=== PATIENT | male | born 1960 | race Two or more races ===

== ENCOUNTER 2020-07-09 12:57 | Inpatient (IN) | payer BC ==
[~2020-07-09] VITALS: Ht 193 cm; Wt 139.9 kg
[~2020-07-09 12:57] MED LIST: CARI250T; FLUT0.0531; HYDR7.5T; METF-371; MONT4CHW9
[2020-07-09] MEDS ORDERED: SODIUM CHLORIDE 0.9% 1,000 ML IV ONE ×2 (13:30)
[2020-07-09] MEDS ORDERED: NITROGLYCERIN 0.4 MG SL TAB SL PRN (13:30)
[2020-07-09] MEDS ORDERED: ACETAMINOPHEN 500 MG TAB PO PRN (13:30)
[2020-07-09] MEDS ORDERED: MORPHINE SULF INJ 2 MG/ML SYRINGE 1ML IV PRN (13:30)
[2020-07-09] MEDS ORDERED: ONDANSETRON HCL 4 MG/2 ML VIAL IV ONE (13:30)
[2020-07-09] MEDS ORDERED: SODIUM CHLORIDE 0.9% 2,000 ML IV SCH (13:30)
[2020-07-09] MEDS ORDERED: KETOROLAC TROMETH 30 MG/ML 1ML VIAL IV PRN ×2 (13:30→14:30)
[2020-07-09] MEDS ORDERED: PIPERACILLIN-TAZOB 3.375GM 100 ML IV ONE (13:30)
[2020-07-09] MEDS ORDERED: CLINDAMYCIN 900MG IV 50 ML IV ONE (13:30)
[2020-07-09] MEDS ORDERED: MORPHINE SULFATE 4 MG/ML SYR/VIAL IV ONE (13:30)
[2020-07-09 13:35] LABS: Basophils # (auto) 0 10 ^3/uL (0-0.2); Basophils % (auto) 0.1 % (0.0-2.0); Eosinophils # (auto) 0 10 ^3/uL (0-0.8); Eosinophils % (auto) 0.1 % (0.0-7.0); Hematocrit 40.2 % (41.0-53.0); Hemoglobin 13.6 g/dL (13.5-17.5); Lymphocytes # (auto) 0.1 10 ^3/uL (0.4-5.4); Lymphocytes % (auto) 0.9 % (10.0-50.0); Mean Corpuscular Hemoglobin 27.2 pg (28.0-32.0); Mean Corpuscular Hgb Conc. 33.9 g/dL (32.0-36.0); Mean Corpuscular Volume 80.2 fL (80.0-100.0); Monocytes # (auto) 0.1 10 ^3/uL (0-1.3); Monocytes % (auto) 1.9 % (0.0-12.0); Neutrophils # (auto) 5.7 10 ^3/uL (1.6-8.6); Nucleated Red Blood Cells % 0.2 %; Platelet Count (auto) 156 10^3/uL (140-450); Red Blood Cells 5.01 10^6/uL (4.5-5.90); Red Cell Distribution Width 15.2 % (11.8-14.3); White Blood Cell 5.9 10^3/uL (4.4-10.8)
[2020-07-09 13:47] LABS: Albumin 3.6 g/dL (3.4-5.0); Anion Gap 7 (5-15); Blood Urea Nitrogen 14 mg/dL (7-18); Calcium 8.5 mg/dL (8.5-10.1); Carbon Dioxide 25 mmol/L (21-32); Chloride 104 mmol/L (98-107); Glucose 271 mg/dL (74-106); Potassium 3.9 mmol/L (3.5-5.1); Sodium 136 mmol/L (136-145)
[2020-07-09 13:51] LABS: Lactic Acid w/Reflex 2.1 mmol/L (0.4-2.0)
[2020-07-09 13:52] LABS: Alanine Aminotransferase 69 U/L (16-61); Alkaline Phosphatase 86 U/L (45-117); Aspartate Aminotransferase 89 U/L (15-37); BUN/Creatinine Ratio 10.1; Bilirubin, Total 1.5 mg/dL (0.2-1.0); GFR African American 68 mL/min; GFR Non-African American 56 mL/min; Total Protein 7.2 g/dL (6.4-8.2)
[2020-07-09 13:56] LABS: INR 1.02 (0.9-1.15); Partial Thromboplastin Time 28.1 sec (23.0-31.2)
[2020-07-09] MEDS ORDERED: DEXTROSE (50%) 50ML SYRG IV ONE (14:00)
[2020-07-09] MEDS ORDERED: DEXTROSE (50%) 50ML SYRG IV PRN (15:00)
[2020-07-09 16:00] VITALS: BP 175/75
--- NOTE | 2020-07-09 16:50 | NUR ---
Patient transferred from ER Assumed care of patient, awake and alert. A/O X 4. No S/S of distress/SOB or pain. Patient is shivering and states he is cold. Vitals temp 98.6, BP 175/75, HR 111, RR 20, O2 95%. Right scrotal ulcer noted. Red with no drainage. ABD applied. Pictures taken. Wound nurse at bedside. Instructed on POC and to call for assist PRN. Patient verbalized understanding. Will continue to monitor for changes Q1hr and PRN.
[2020-07-09 17:00] VITALS: BP 152/84
[2020-07-09] MEDS: ACCU-CHEK COMFORT CURVE STRIP VI SCH ×2 (17:00→21:43)
--- NOTE | 2020-07-09 17:00 | NUR ---
WOUND CARE NOTE: IN TO SEE PATIENT AT THIS TIME PER WOUND CARE CONSULT REQUEST. PATIENT WAS NOTED UPON PRESENTATION TO THE ER TO HAVE A WOUND TO RIGHT SCROTUM. WOUND CONSULT ORDERED AT THAT TIME. PATIENT ADMITTED TO COUNT INCLUDES THE [facility] WITH FEVER, CHILLS. WOUND PHOTO TAKEN AT THIS TIME FOR REFERENCE. WOUND CULTURE WAS CAPTURED, SENT TO LAB FOR PROCESSING, WHILE PATIENT STILL IN ER. PATIENT IS NOTED TO HAVE A HARD INDURATED RIGHT SCROTUM, WITH 1 X 1 CM OPEN WOUND NOTED. WOUND IS VERY TENDER TO THE TOUCH, SCANT PURULENT DRAINAGE NOTED. CLEANSED WITH WOUND CLEANSER, PATTED DRY WITH STERILE GAUZE. APPLIED ABD PAD, SECURING WITH PATIENT'S UNDERWEAR. RECOMMEND: DAILY/PRN DRESSING CHANGE WITH ABD PAD, UROLOGIST CONSULT FOR POSSIBLE SURGICAL INTERVENTION, SKIN/WOUND CARE PLAN. WOUND CARE TEAM WILL CONTINUE TO MONITOR. Addendum: 07/09/20 at 1839 by Sole Sarah RN Amended: Links added.
[2020-07-09] MEDS ORDERED: IOHEXOL 300 MG/ML 100ML BOTTLE IJ ONE (17:06)
[2020-07-09] MEDS ORDERED: HYDR-531 PO (17:18)
[2020-07-09] MEDS ORDERED: PANT40T PO (17:18)
[2020-07-09] MEDS ORDERED: ERGO1CAP12 PO (17:18)
[2020-07-09] MEDS ORDERED: SITA100T7 PO (17:18)
[2020-07-09] MEDS ORDERED: VALS1TAB58 PO (17:19)
[2020-07-09] MEDS: INSULIN LANTUS (GLARGINE) 1 /0.01ml (100units/ml) SC SCH (18:00)
--- NOTE | 2020-07-09 18:29 | NUR ---
Medication withheld Regular insulin withheld due to the close administration of Lantus. BS 243. Lantus given. score caller hospitalist notified.
--- NOTE | 2020-07-09 19:25 | NUR ---
Opening Shift Note Assumed care of patient. Patient is awake, alert, and oriented x 4. No S/S of respiratory distress. Respirations are regular and non-labored. Pt reports pain 8/10 at this time and will be medicated per dr's order. Bed in lowest locked position, side rails up x 2, and call light is within reach. Instructed on POC and to call for assistance as needed. Will continue to monitor for changes Q1hr and PRN.
[2020-07-09 20:00] VITALS: BP 111/68
[2020-07-09] MEDS: HYDROmorphone HCL 2 MG/ML VL IV PRN (20:11)
[2020-07-09 21:17] LABS: Urine Bacteria NONE SEEN /hpf (None Seen); Urine Blood Negative /uL (Negative); Urine WBC <1 /hpf (0 - 3)
[2020-07-09 21:32] LABS: Urine Specific Gravity > 1.050 (1.001-1.035)
--- NOTE | 2020-07-09 21:40 | NUR ---
's call Dr. Sahu called to get updates on patient's current condition. Updates were given. New order's were received, verified, read back, and will be implemented. Will continue pt's care. Addendum: 07/10/20 at 0317 by JAKE LECHUGA RN RN Per 's order rate of NaCl 0.9% should be decreased from 125 ml/h to 80 ml/h.
[2020-07-09] MEDS: PIPERACILLIN-TAZO 4.5GM 100 ML IV SCH (21:44)
[2020-07-09] MEDS: InsuLIN REG 1unit/0.01ml Soln (100units/ml) SC SCH (21:46)
[2020-07-09 22:00] VITALS: BP 111/68
[2020-07-09] MEDS ORDERED: LINEZOLID 600MG/300ML 300 ML IV SCH (22:00)
[2020-07-10 05:00] VITALS: BP 121/73
[2020-07-10] MEDS ORDERED: SOD CHL 0.45% 1,000 ML IV SCH (05:30)
[2020-07-10 05:37] LABS: Hemoglobin 12.4 g/dL (13.5-17.5); Platelet Count (auto) 132 10^3/uL (140-450)
[2020-07-10 05:42] LABS: Hematocrit 36.3 % (41.0-53.0); Mean Corpuscular Hemoglobin 27.4 pg (28.0-32.0); Mean Corpuscular Hgb Conc. 34.1 g/dL (32.0-36.0); Mean Corpuscular Volume 80.3 fL (80.0-100.0); Red Blood Cells 4.52 10^6/uL (4.5-5.90); Red Cell Distribution Width 15.2 % (11.8-14.3)
[2020-07-10 05:53] LABS: Albumin 2.6 g/dL (3.4-5.0); Calcium 8.1 mg/dL (8.5-10.1); Potassium 3.8 mmol/L (3.5-5.1)
[2020-07-10 05:58] LABS: BUN/Creatinine Ratio 15.3; Bilirubin, Total 3.2 mg/dL (0.2-1.0); Total Protein 5.6 g/dL (6.4-8.2)
[2020-07-10 06:03] LABS: White Blood Cell 1.8 10^3/uL (4.4-10.8)
[2020-07-10 06:05] LABS: Basophils % (manual) 0 (0.0-2.0); Blast Cells 0; Eosinophils % (manual) 0 (0-7); Promyelocytes % 0; Reactive Lymphocytes 0
--- NOTE | 2020-07-10 06:15 | NUR ---
Critical value. Pt's WBCs 1.8. Called Dr. Sahu regarding pt's current condition and lab value. received all info and placed orders. Will continue pt's care.
[2020-07-10] MEDS: PIPERACILLIN-TAZO 4.5GM 100 ML IV SCH ×4 (06:21→15:43)
[2020-07-10] MEDS ORDERED: FILGRASTIM(TBO) 480 MCG/0.8 ML SYRG SC ONE (06:30)
[2020-07-10] MEDS: HYDROmorphone HCL 2 MG/ML VL IV PRN ×2 (06:42→22:31)
[2020-07-10] MEDS ORDERED: D5W 5% IV ONE (06:45)
[2020-07-10] MEDS ORDERED: GENTAMICIN SULFATE IV ONE (06:45)
[2020-07-10] MEDS ORDERED: GENTAMICIN IV SCH ×2 (06:45→10:00)
[2020-07-10 06:53] LABS: Band Neutrophils % (manual) 11; Lymphocytes % (manual) 6 (10.0-50.0); Metamyelocytes % 1; Monocytes % (manual) 6 (0-12); Myelocytes % 1
[2020-07-10] MEDS: ACCU-CHEK COMFORT CURVE STRIP VI SCH ×4 (07:01→22:30)
[2020-07-10] MEDS: InsuLIN REG 1unit/0.01ml Soln (100units/ml) SC SCH ×2 (07:06→11:30)
[2020-07-10 08:00] VITALS: BP 121/67
--- NOTE | 2020-07-10 08:00 | NUR ---
Received pt resting in bed, call light within reach, pt denies any pain or discomfort at this time, pt has swelling and abscess on rt side of scrotal, ordered the arvind strap, will continue to monitor pt.
[2020-07-10] MEDS: SODIUM CHLORIDE 0.9% 1,000 ML IV SCH ×2 (08:54→17:03)
[2020-07-10 09:00] VITALS: BP 121/67
[2020-07-10] MEDS: FILGRASTIM(TBO) 480 MCG/0.8 ML SYRG SC SCH (10:00)
[2020-07-10] MEDS: INSULIN LANTUS (GLARGINE) 1 /0.01ml (100units/ml) SC SCH ×3 (10:25→17:11)
--- NOTE | 2020-07-10 11:50 | NUR ---
Dr. Sahu at bed side to see pt, doctor discussed plan of care with pt. Doctor assessed abscess.
[2020-07-10] MEDS: GENTAMICIN SULFATE IV SCH ×2 (12:26→23:09)
[2020-07-10] MEDS: D5W 5% IV SCH ×2 (12:26→23:09)
[2020-07-10] MEDS: INSULIN LISPRO (HUMAN) 100 UNITS/ML ML SC SCH ×3 (12:50→22:43)
[2020-07-10] MEDS: LINEZOLID 600MG/300ML 300 ML IV SCH (14:00)
[2020-07-10 17:00] VITALS: BP 120/79
--- NOTE | 2020-07-10 17:31 | NUR ---
Called and spoke to CHRISTINE Whipple/urology to clarify order for COVID test, doctor informed that the rapid rosenda test done and negative, as per doctor that is good enough and no need to do the inhouse covid test.
--- NOTE | 2020-07-10 19:28 | NUR ---
OPENING NOTE Assumed care of patient. Pt is awake, alert, and oriented X 4, resting in bed. No s/s of respiratory distress. Respirations are regular and non-labored. PT is on RA. traffic monitor specialist leads positioned correctly. Bed in lowest locked position, bed rails up X 2, call light is within reach. Instructed on POC and encouraged to call for assistance as needed. All questions and concerns addressed, patient verbalized understanding. Will continue to monitor Q1H and/or PRN.
[2020-07-10 20:00] VITALS: BP 121/71
[2020-07-10 21:00] VITALS: BP 121/71
--- NOTE | 2020-07-10 21:30 | NUR ---
Patient transferred to room 282. Patient instructed on neutropenic precautions. Will continue to monitor.
[2020-07-11] MEDS: PIPERACILLIN-TAZO 4.5GM 100 ML IV SCH ×4 (00:03→23:08)
[2020-07-11] MEDS: LINEZOLID 600MG/300ML 300 ML IV SCH ×2 (02:03→14:17)
[2020-07-11] MEDS: SODIUM CHLORIDE 0.9% 1,000 ML IV SCH ×2 (02:45→12:32)
[2020-07-11 05:00] VITALS: BP 132/85
--- NOTE | 2020-07-11 05:11 | NUR ---
Prep to OR CHG bath given to patient.
[2020-07-11 06:38] LABS: Basophils # (auto) 0 10 ^3/uL (0-0.2); Eosinophils # (auto) 0 10 ^3/uL (0-0.8); Mean Corpuscular Hgb Conc. 33.9 g/dL (32.0-36.0); Monocytes # (auto) 0.2 10 ^3/uL (0-1.3); Neutrophils # (auto) 3.5 10 ^3/uL (1.6-8.6); Neutrophils % (auto) 85.3 % (37.0-80.0); Red Cell Distribution Width 15.2 % (11.8-14.3); White Blood Cell 4.1 10^3/uL (4.4-10.8)
[2020-07-11 06:40] LABS: Basophils % (auto) 0.6 % (0.0-2.0); Eosinophils % (auto) 0.9 % (0.0-7.0); Hematocrit 35.6 % (41.0-53.0); Hemoglobin 12.1 g/dL (13.5-17.5); Lymphocytes # (auto) 0.4 10 ^3/uL (0.4-5.4); Lymphocytes % (auto) 8.6 % (10.0-50.0); Mean Corpuscular Hemoglobin 26.9 pg (28.0-32.0); Mean Corpuscular Volume 79.2 fL (80.0-100.0); Monocytes % (auto) 4.6 % (0.0-12.0); Nucleated Red Blood Cells % 0.1 %; Platelet Count (auto) 125 10^3/uL (140-450); Red Blood Cells 4.49 10^6/uL (4.5-5.90)
[2020-07-11] MEDS: ACCU-CHEK COMFORT CURVE STRIP VI SCH ×4 (06:50→21:08)
[2020-07-11] MEDS: INSULIN LISPRO (HUMAN) 100 UNITS/ML ML SC SCH ×4 (06:50→21:10)
[2020-07-11 06:52] LABS: Albumin 2.6 g/dL (3.4-5.0); Calcium 8.2 mg/dL (8.5-10.1); Potassium 3.5 mmol/L (3.5-5.1)
[2020-07-11] MEDS: HYDROmorphone HCL 2 MG/ML VL IV PRN ×2 (06:54→21:25)
[2020-07-11 06:55] LABS: Bilirubin, Total 1.7 mg/dL (0.2-1.0); Total Protein 5.9 g/dL (6.4-8.2)
[2020-07-11 08:00] VITALS: BP 123/85
[2020-07-11] MEDS: INSULIN LANTUS (GLARGINE) 1 /0.01ml (100units/ml) SC SCH ×2 (08:41→17:24)
[2020-07-11 09:00] VITALS: BP 138/78
--- NOTE | 2020-07-11 09:10 | NUR ---
OFF FLOOR Patient taken to Pre-op
[2020-07-11] MEDS ORDERED: SUCCINYLCHOLINE CHLORIDE 20 MG/ML 10ML VIAL IV ONE (09:27)
[2020-07-11] MEDS ORDERED: LIDOCAINE 1% (LOCAL ANESTH.) PF 5ml SDV ONE (09:27)
[2020-07-11] MEDS ORDERED: ceFAZolin 1GM/50ML 50 ML IV ONE (09:27)
[2020-07-11] MEDS ORDERED: LIDOCAINE 1% HCL (LOCAL ANESTH.) INJ 20ML MDV ONE (09:28)
[2020-07-11] MEDS ORDERED: LIDOCAINE W/ EPINEPHRINE 1% 20ML VIAL ONE (09:28)
[2020-07-11] MEDS ORDERED: MIDAZOLAM HCL 1MG/1ML-2 ML VIAL ONE (09:29)
[2020-07-11] MEDS ORDERED: ETOMIDATE (2MG/ML) 20ML VIAL IV ONE (09:32)
[2020-07-11] MEDS ORDERED: ROCURONIUM 10MG/ML 10ML VIAL IV ONE (09:32)
[2020-07-11] MEDS ORDERED: METOCLOPRAMIDE HCL 5MG/ml INJ 2ml VIAL ONE (09:38)
[2020-07-11] MEDS ORDERED: fentaNYL CITRATE 100 MCG/2 ML VL ONE (09:51)
--- NOTE | 2020-07-11 10:04 | NUR ---
Opening Shift Note Assumed care of patient, awake and alert. No S/S of distress/SOB or pain. Bed in lowest position side rails up x2 and call light within reach. Left hand 22 G IV patent, dry, and intact running NS at 100 ml/hr with no signs of redness or swelling. Instructed on POC and to call for assist PRN, will continue to monitor for changes Q1hr and PRN.
[2020-07-11] MEDS ORDERED: NALOXONE HCL 0.4 MG/ML VIAL IV PRN (10:30)
[2020-07-11] MEDS ORDERED: ONDANSETRON HCL 4 MG/2 ML VIAL IV PRN (10:30)
[2020-07-11] MEDS ORDERED: HYDROmorphone HCL 2 MG/ML VL IV PRN ×2 (10:30)
[2020-07-11] MEDS ORDERED: ACCU-CHEK COMFORT CURVE STRIP VI ONE (10:30)
--- NOTE | 2020-07-11 11:15 | NUR ---
PATIENT BACK FROM OR Received bedside report from OR nurse. Pt. is stable, A&Ox4, and showing no signs of distress. Pt. has hospital underwear with gauze pads and Sx site is clean and dry. Fall precautions in place; bed alarm on, bed in lowest position with side rails up x2 and call light within reach. Patient is on O2 via NC for comfort.
[2020-07-11] MEDS: FILGRASTIM(TBO) 480 MCG/0.8 ML SYRG SC SCH (11:25)
[2020-07-11] MEDS ORDERED: POTASSIUM CHL 20MEQ/100ML 100 ML IV PRN (12:15)
[2020-07-11] MEDS: KETOROLAC TROMETH 30 MG/ML 1ML VIAL IV PRN (12:38)
--- NOTE | 2020-07-11 12:55 | NUR ---
POST PROCEDURE VS T: 97.7 F HR: 90 RR: 24 on 4L O2 via NC O2: 96% BP: 131/83
[2020-07-11 12:59] VITALS: BP 131/83
[2020-07-11] MEDS ORDERED: POTASSIUM CHL 20MEQ/100ML 100 ML IV SCH (14:00)
[2020-07-11] MEDS: POTASSIUM CHL 20MEQ/100ML 100 ML IV SCH ×2 (14:44→20:03)
[2020-07-11 16:53] VITALS: BP 145/81
--- NOTE | 2020-07-11 19:35 | NUR ---
Opening Shift Note Assumed care of patient, awake and alert. Fall and safety precautions in place. No S/S of distress/SOB. Instructed on POC and to call for assist PRN, patient verbalized understanding and in agreement. Call light within reach and able to use. Will continue to monitor for changes Q1hr and PRN.
[2020-07-11 21:00] VITALS: BP 148/85
[2020-07-12] MEDS: SODIUM CHLORIDE 0.9% 1,000 ML IV SCH (00:29)
[2020-07-12] MEDS: LINEZOLID 600MG/300ML 300 ML IV SCH ×2 (01:15→13:17)
[2020-07-12 05:00] VITALS: BP 155/89
[2020-07-12] MEDS: KETOROLAC TROMETH 30 MG/ML 1ML VIAL IV PRN ×2 (05:11→21:06)
[2020-07-12] MEDS: ACCU-CHEK COMFORT CURVE STRIP VI SCH ×4 (06:02→21:01)
[2020-07-12] MEDS: INSULIN LISPRO (HUMAN) 100 UNITS/ML ML SC SCH ×4 (06:04→21:05)
[2020-07-12 08:00] VITALS: BP 123/85
[2020-07-12] MEDS: INSULIN LANTUS (GLARGINE) 1 /0.01ml (100units/ml) SC SCH ×2 (08:12→17:23)
[2020-07-12 08:13] LABS: Basophils # (auto) 0 10 ^3/uL (0-0.2); Basophils % (auto) 0.2 % (0.0-2.0); Eosinophils # (auto) 0.1 10 ^3/uL (0-0.8); Eosinophils % (auto) 1.3 % (0.0-7.0); Hematocrit 35.8 % (41.0-53.0); Hemoglobin 12.1 g/dL (13.5-17.5); Lymphocytes # (auto) 0.7 10 ^3/uL (0.4-5.4); Lymphocytes % (auto) 7.6 % (10.0-50.0); Mean Corpuscular Hemoglobin 26.6 pg (28.0-32.0); Mean Corpuscular Hgb Conc. 33.7 g/dL (32.0-36.0); Mean Corpuscular Volume 78.8 fL (80.0-100.0); Monocytes # (auto) 0.6 10 ^3/uL (0-1.3); Monocytes % (auto) 6.7 % (0.0-12.0); Neutrophils # (auto) 7.6 10 ^3/uL (1.6-8.6); Neutrophils % (auto) 84.2 % (37.0-80.0); Nucleated Red Blood Cells % 0.2 %; Platelet Count (auto) 143 10^3/uL (140-450); Red Blood Cells 4.54 10^6/uL (4.5-5.90); Red Cell Distribution Width 15.2 % (11.8-14.3)
--- NOTE | 2020-07-12 08:13 | NUR ---
Opening Shift Note Assumed care of patient, awake and alert. No S/S of distress/SOB or pain. Bed in lowest position side rails up x2 and call light within reach. Left hand 22 G IV running NS at 80 ml/hr patent, dry, intact with no redness or swelling. Instructed on POC and to call for assist PRN, will continue to monitor for changes Q1hr and PRN.
[2020-07-12] MEDS: PIPERACILLIN-TAZO 4.5GM 100 ML IV SCH ×3 (08:14→23:19)
[2020-07-12] MEDS ORDERED: FILGRASTIM(TBO) 480 MCG/0.8 ML SYRG SC SCH (08:15)
[2020-07-12 08:27] LABS: Albumin 2.8 g/dL (3.4-5.0); Calcium 8.6 mg/dL (8.5-10.1)
[2020-07-12 08:32] LABS: BUN/Creatinine Ratio 8.7; Bilirubin, Total 0.9 mg/dL (0.2-1.0); Total Protein 6.2 g/dL (6.4-8.2)
[2020-07-12 09:00] VITALS: BP 121/79
[2020-07-12] MEDS: HYDROmorphone HCL 2 MG/ML VL IV PRN ×2 (10:25→16:50)
--- NOTE | 2020-07-12 11:25 | NUR ---
Dr. Sahu at bed side to see pt, doctor discussed the plan of care with pt. doctor informed of pharmacy requesting clarification order regarding Mag dosages and or parameters.
[2020-07-12] MEDS ORDERED: VALSARTAN 80 MG TAB PO ONE (11:45)
[2020-07-12] MEDS: SOD CHL 0.45% 1,000 ML IV SCH (13:17)
[2020-07-12 13:30] VITALS: BP 136/80
--- NOTE | 2020-07-12 15:20 | NUR ---
Faxed [phone] for wound care to [facility] [phone]
--- NOTE | 2020-07-12 16:15 | NUR ---
Spoke with Janelle BURGOS stated they are waiting for the insurance auth and will call me when it is approved.
[2020-07-12 16:30] VITALS: BP 132/79
--- NOTE | 2020-07-12 16:32 | NUR ---
Called [facility], [facility], [facility], [facility], [facility], [facility], none of these HH services, will accept the insurance.
--- NOTE | 2020-07-12 16:40 | NUR ---
Received a call from Janelle Reid for [facility] and stated they will not due to insurance.
--- NOTE | 2020-07-12 16:47 | NUR ---
Called [employer] the secondary insurance the that patient gave us and spoke with Sergey BURGOS and checked the policy but the patient has no home health
--- NOTE | 2020-07-12 19:45 | NUR ---
Opening Shift Note Assumed care of patient, AOx4. Fall and safety precautions in place. No S/S of distress/SOB. Instructed on POC and to call for assist PRN, patient verbalized understanding and in agreement. Call light within reach and able to use. Will continue to monitor for changes Q1hr and PRN.
[2020-07-12 21:50] VITALS: BP 136/76
--- NOTE | 2020-07-12 22:15 | NUR ---
IV removal IV DC'd to left hand due to infiltration with clean sterile technique, catheter fully intact. Pressure dressing applied to site. Patient given ice pack to reduce swelling. Patient tolerated well. Will continue to monitor.
--- NOTE | 2020-07-12 22:30 | NUR ---
IV insertion IV access obtained, via clean sterile technique by inserting 22 gauge catheter at right forearm after 2 attempts. IV secured properly. No trauma to site. Patient tolerated well. Will continue to monitor.
[2020-07-13] VITALS (7 sets, daily range): BP systolic 126–153; BP diastolic 60–93
[2020-07-13] MEDS: LINEZOLID 600MG/300ML 300 ML IV SCH ×2 (01:42→15:32)
[2020-07-13] MEDS: ACCU-CHEK COMFORT CURVE STRIP VI SCH ×3 (06:03→17:02)
[2020-07-13] MEDS: INSULIN LISPRO (HUMAN) 100 UNITS/ML ML SC SCH ×3 (06:03→17:39)
[2020-07-13 06:57] LABS: Basophils # (auto) 0 10 ^3/uL (0-0.2); Eosinophils # (auto) 0.2 10 ^3/uL (0-0.8); Hemoglobin 11.4 g/dL (13.5-17.5); Lymphocytes # (auto) 0.9 10 ^3/uL (0.4-5.4); Mean Corpuscular Hemoglobin 26.8 pg (28.0-32.0); Monocytes # (auto) 0.5 10 ^3/uL (0-1.3)
[2020-07-13 07:04] LABS: Basophils % (auto) 0.5 % (0.0-2.0); Eosinophils % (auto) 2.9 % (0.0-7.0); Hematocrit 33.8 % (41.0-53.0); Lymphocytes % (auto) 12.6 % (10.0-50.0); Mean Corpuscular Hgb Conc. 33.8 g/dL (32.0-36.0); Mean Corpuscular Volume 79.5 fL (80.0-100.0); Monocytes % (auto) 7.4 % (0.0-12.0); Neutrophils # (auto) 5.3 10 ^3/uL (1.6-8.6); Neutrophils % (auto) 76.6 % (37.0-80.0); Platelet Count (auto) 163 10^3/uL (140-450); Red Blood Cells 4.25 10^6/uL (4.5-5.90); Red Cell Distribution Width 15.2 % (11.8-14.3); White Blood Cell 6.9 10^3/uL (4.4-10.8)
[2020-07-13 07:18] LABS: Albumin 2.9 g/dL (3.4-5.0); Calcium 8.6 mg/dL (8.5-10.1)
[2020-07-13 07:23] LABS: BUN/Creatinine Ratio 11.2; Bilirubin, Total 0.6 mg/dL (0.2-1.0); Potassium 3.7 mmol/L (3.5-5.1); Total Protein 5.8 g/dL (6.4-8.2)
--- NOTE | 2020-07-13 07:50 | NUR ---
Opening Shift Note Assumed care of patient, awake and alert. No S/S of distress/SOB or pain. Instructed on POC and to call for assist PRN, will continue to monitor for changes Q1hr and PRN. Bed locked in lowest position with two side rails up and call light in reach.
[2020-07-13] MEDS: PIPERACILLIN-TAZO 4.5GM 100 ML IV SCH ×2 (08:13→16:39)
[2020-07-13] MEDS: INSULIN LANTUS (GLARGINE) 1 /0.01ml (100units/ml) SC SCH ×2 (08:34→17:42)
[2020-07-13] MEDS ORDERED: VALSARTAN 80 MG TAB PO SCH (10:00)
[2020-07-13] MEDS: KETOROLAC TROMETH 30 MG/ML 1ML VIAL IV PRN (10:40)
--- NOTE | 2020-07-13 11:20 | NUR ---
Nutrition Assessment Est energy needs 8570-2034 kcal (11-14 kcal/kg BW 139.9kg) Est protein needs 89-116g (1-1.3g/kg IBW 89kg) Will monitor and reassess prn. Addendum: 07/13/20 at [address] Amended: Links added.
[2020-07-13] MEDS: SOD CHL 0.45% 1,000 ML IV SCH (12:10)
--- NOTE | 2020-07-13 15:20 | NUR ---
PAGED DR RIVERA FOR PATIENT. PATIENT IS WANTING TO KNOW WHEN HE WILL BE DISCHARGED. WILL AWAIT CALL BACK.
[2020-07-13] MEDS ORDERED: TETANUS-DIPTH-ACEL PERTUSSIS 0.5ML SYR Tdap IM ONE (18:00)
[2020-07-13] MEDS ORDERED: METF-370 PO (18:24)
[2020-07-13] MEDS ORDERED: DOXY-340 PO (18:24)
[2020-07-13] MEDS ORDERED: LEVEMIR SC (18:26)
--- NOTE | 2020-07-13 19:05 | NUR ---
PATIENT HAS A SOCIAL SERVICE CONSULT FOR WOUND CARE PER DR RIVERA IT IS OKAY TO DISCHARGE HOME. PATIENT IS TO FOLLOW UP WITH DR RIVERA ON Wednesday07/15/20 PATIENT VERBALIZED UNDERSTANDING. PATIENT INSTRUCTED ON WOUND AND CARE FROM MYSELF AND DR RIVERA AT BEDSIDE. PATIENT VERBALIZED UNDERSTANDING.
--- NOTE | 2020-07-13 19:30 | NUR ---
DISCHARGE IV REMOVED FROM PATIENT. PATIENT DISCHARGED WITH ALL EDUCATION, MEDICATIONS, PRESCRIPTIONS, FOLLOW-UP APPOINTMENTS, AND INSTRUCTIONS. PATIENT VERBALIZED UNDERSTANDING AND IN AGREEMENT. PATIENT HAS NO ADDITIONAL QUESTIONS AT THIS TIME. PATIENT WHEELED DOWN VIA WHEELCHAIR TO RIDE HOME IN FRONT LOBBY WITH ALL PERSONAL BELONGINGS. PATIENT IN NO S/S OF DISTRESS/SOB/PAIN OR COMPLAINTS. TELE BOX #[id number] RETURNED TO TELE SUPERVISOR BRAIDING.
== END 2020-07-13 19:30 | disposition home or self-care (01) | DRG 872 ==
LOC: ER 12:57 → TELE 12:58 → TELE-WESTW 16:57
PROVIDERS: ADMIT Specialist; ATTEND Specialist
PROC: 0V950ZX Drainage of Scrotum, Open Approach, Diagnostic (ICD-10-PCS; principal; 2020-07-11 09:27)
DX: A41.9 Sepsis, unspecified organism (principal); L03.311 Cellulitis of abdominal wall; E66.2 Morbid (severe) obesity with alveolar hypoventilation; L03.818 Cellulitis of other sites; B95.2 Enterococcus as the cause of diseases classified elsewhere; D70.9 Neutropenia, unspecified; E11.65 Type 2 diabetes mellitus with hyperglycemia; Z68.37 Body mass index [BMI] 37.0-37.9, adult; E88.81 Metabolic syndrome and other insulin resistance; I10 Essential (primary) hypertension; K72.90 Hepatic failure, unspecified without coma; L02.92 Furuncle, unspecified; N28.1 Cyst of kidney, acquired; N43.3 Hydrocele, unspecified; N49.2 Inflammatory disorders of scrotum; Z78.9 Other specified health status; Z79.84 Long term (current) use of oral hypoglycemic drugs; Z82.49 Family history of ischemic heart disease and other diseases of the circulatory system; Z91.11 Patient's noncompliance with dietary regimen; Z91.14 Patient's other noncompliance with medication regimen; Z98.84 Bariatric surgery status; G89.29 Other chronic pain; K21.9 Gastro-esophageal reflux disease without esophagitis; M54.9 Dorsalgia, unspecified; E11.42 Type 2 diabetes mellitus with diabetic polyneuropathy; Z20.828 Contact with and (suspected) exposure to other viral communicable diseases
CPT/HCPCS: 36415; 71045; 74177; 76870; 80053; 81001; 82962; 83036; 83605; 84484; 85007; 85025; 85027; 85610; 85730; 87040; 87070; 87075; 87077; 87186; 87205; 87426; 90715; 96365; 96367; 96375; G0378; J0330; J0690; J1447; J1815; J1885; J2001; J2250; J2405; J2543; J3480; J3490; J7060

== ENCOUNTER 2021-11-02 02:25 | Emergency (ER) | payer BC ==
[~2021-11-02] VITALS: Ht 188 cm; Wt 138.3 kg
[~2021-11-02 02:25] MED LIST changes: -CARI250T; +DOXY-340 PO; +ERGO1CAP12 PO; -FLUT0.0531; +HYDR-531 PO; -HYDR7.5T; +LEVEMIR SC; +METF-370 PO; -METF-371; -MONT4CHW9; +PANT40T PO; +SITA100T7 PO; +VALS1TAB58 PO
[2021-11-02 02:33] VITALS: BP 126/72
[2021-11-02 03:09] LABS: Basophils # (auto) 0.1 10 ^3/uL (0-0.2); Basophils % (auto) 1.3 % (0.0-2.0); Eosinophils # (auto) 0.2 10 ^3/uL (0-0.8); Eosinophils % (auto) 4.2 % (0.0-7.0); Hematocrit 38.7 % (41.0-53.0); Hemoglobin 13.3 g/dL (13.5-17.5); Lymphocytes # (auto) 0.9 10 ^3/uL (0.4-5.4); Lymphocytes % (auto) 19.2 % (10.0-50.0); Mean Corpuscular Hemoglobin 28.3 pg (28.0-32.0); Mean Corpuscular Hgb Conc. 34.3 g/dL (32.0-36.0); Mean Corpuscular Volume 82.3 fL (80.0-100.0); Monocytes # (auto) 0.5 10 ^3/uL (0-1.3); Monocytes % (auto) 9.8 % (0.0-12.0); Neutrophils % (auto) 65.5 % (37.0-80.0); Nucleated Red Blood Cells % 0.1 %; Red Cell Distribution Width 14.3 % (11.8-14.3); White Blood Cell 4.6 10^3/uL (4.4-10.8)
[2021-11-02 03:29] LABS: Albumin 3.8 g/dL (3.4-5.0); Calcium 9.4 mg/dL (8.5-10.1); Potassium 3.7 mmol/L (3.5-5.1)
[2021-11-02 03:44] LABS: Bilirubin, Total 0.4 mg/dL (0.2-1.0); Total Protein 7.2 g/dL (6.4-8.2)
== END 2021-11-02 03:29 | disposition left against medical advice (07) ==
LOC: ER 02:25
DX: R10.9 Unspecified abdominal pain (principal); E11.9 Type 2 diabetes mellitus without complications; I10 Essential (primary) hypertension; Z79.4 Long term (current) use of insulin
CPT/HCPCS: 36415; 80053; 83690; 85025; 93005